=== PATIENT | female | born 1990 | race Caucasian/White ===

== ENCOUNTER 2020-11-13 21:00 | Inpatient (IN) ==
[2020-11-13] MEDS ORDERED: 0.9 % Sodium Chloride 1,000 ML IVC ONE (21:30)
[2020-11-13 22:41] LABS: Basophils % 0.4 %; Eosinophils % 0.4 %; Hematocrit 42.2 % (35.3-44.9); Hemoglobin 13.9 g/dL (11.5-15.4); Immature Granulocytes % 0.4 % (0-4); Lymphocytes % 37.7 %; Mean Corpuscular HGB Conc 32.9 g/dL (31.6-35.5); Mean Corpuscular Hemoglobin 27.5 pg (28.0-33.3); Mean Corpuscular Volume 83.6 fL (83.0-100.0); Mean Platelet Volume 8.9 fL (9.4-12.4); Monocytes # 0.3 K/mcL (0.0-1.3); Monocytes % 5.7 %; Platelet Count 280 K/mcL (140-400); Red Blood Count 5.05 M/mcL (3.82-4.97); Red Cell Distribution Width 13.1 % (11.5-14.5); Segmented Neutrophils % 55.4 %; White Blood Count 5.4 K/mcL (4.3-11.1)
[2020-11-13 22:50] LABS: VBG HCO3 32 mEq/L (21-27); VBG PCO2 50 mmHg (41-51); VBG PH 7.41 pH Units (7.32-7.42); VBG PO2 87 mmHg (25-50)
[2020-11-13 23:00] LABS: BUN/Creatinine Ratio 11 (6-26); Blood Urea Nitrogen 7 mg/dL (6-20); Calcium 8.9 mg/dL (8.6-10.3); Carbon Dioxide 26 mEq/L (23-29); Chloride 102 mEq/L (98-107); Glucose 88 mg/dL (70-105); Osmolality,Calculated 289 (280-300); Potassium 3.4 mEq/L (3.5-5.1); Sodium 141 mEq/L (136-145); eGFR For African Americans > 60 (> 60); eGFR For Non-African Americans > 60 (> 60)
[2020-11-13 23:16] LABS: Troponin I 0.05 ng/mL (< 0.04)
[2020-11-13 23:17] LABS: Bacteria,Urine Few per hpf (None-Few); Bilirubin,Urine Negative (Negative); Blood,Urine Negative (Negative); Clarity,Urine Turbid (Clear); Color,Urine Yellow (Yellow); Glucose,Urine (UA) Normal (Normal); Ketones,Urine Trace mg/dL (Negative); Leukocyte Esterase,Urine Small (Negative); Mucus,Urine Few per lpf (None-Few); Nitrite,Urine Negative (Negative); PH,Urine 6.5 pH Units (5.0-8.0); Protein,Urine 100 mg/dL (Neg-Trace); Specific Gravity,Urine > 1.030 (1.010-1.025); Squamous Epithelial Cell,Urine Moderate per hpf (None-Few)
[2020-11-13] MEDS ORDERED: Aspirin Enteric Coated 81 MG Tablet PO ONE (23:30)
[2020-11-13] MEDS ORDERED: Benzonatate 100 MG CAPSULE PO PRN (23:59)
[2020-11-14] MEDS ORDERED: Ipratropium 1 PUFF INHALER IH PRN (00:01)
[2020-11-14] MEDS ORDERED: Melatonin 3 MG TABLET PO PRN (00:02)
[2020-11-14] MEDS ORDERED: Ondansetron 4 MG/2 ML VIAL IVP PRN (00:02)
[2020-11-14] MEDS ORDERED: Naloxone 0.4 MG/ML INJ IVP PRN (00:02)
[2020-11-14] MEDS ORDERED: Acetaminophen 325 MG TABLET PO PRN (00:02)
[2020-11-14] MEDS ORDERED: Furosemide 20 MG/2 ML VIAL IVP ONE (00:51)
[2020-11-14 01:01] LABS: Alanine Aminotransferase 97 Units/L (7-52); Albumin/Globulin Ratio 1.1 (1.1-2.2); Alkaline Phosphatase 94 Units/L (34-104); Aspartate Amino Transferase 109 Units/L (13-39); Bilirubin,Indirect 0.4 mg/dL (0.0-1.0); Bilirubin,Total 0.4 mg/dL (0.3-1.0); C-Reactive Protein 102 mg/L (Less than 10); Globulin 3.5 g/dL (2.4-3.5); Total Protein 7.5 g/dL (6.4-8.9)
[2020-11-14 04:00] LABS: Basophils % 0.4 %; Hematocrit 42.4 % (35.3-44.9); Hemoglobin 13.9 g/dL (11.5-15.4); Immature Granulocytes % 0.6 % (0-4); Lymphocytes # 0.8 K/mcL (0.6-4.6); Lymphocytes % 17.3 %; Mean Corpuscular HGB Conc 32.8 g/dL (31.6-35.5); Mean Corpuscular Hemoglobin 27.5 pg (28.0-33.3); Mean Platelet Volume 8.9 fL (9.4-12.4); Monocytes # 0.1 K/mcL (0.0-1.3); Monocytes % 1.3 %; Neutrophils # 3.9 K/mcL (1.6-8.9); Platelet Count 313 K/mcL (140-400); Red Blood Count 5.05 M/mcL (3.82-4.97); Segmented Neutrophils % 80.4 %; White Blood Count 4.8 K/mcL (4.3-11.1)
[2020-11-14] MEDS ORDERED: Remdesivir 200 MG in 0.9 % Sodium Chloride 100 ML IVPB ONE (04:00)
[2020-11-14 04:20] LABS: Alanine Aminotransferase 103 Units/L (7-52); Albumin 4.1 g/dL (3.5-5.7); Albumin/Globulin Ratio 1.2 (1.1-2.2); Alkaline Phosphatase 102 Units/L (34-104); Aspartate Amino Transferase 108 Units/L (13-39); BUN/Creatinine Ratio 12 (6-26); Bilirubin,Indirect 0.4 mg/dL (0.0-1.0); Bilirubin,Total 0.4 mg/dL (0.3-1.0); Blood Urea Nitrogen 7 mg/dL (6-20); Calcium 8.7 mg/dL (8.6-10.3); Carbon Dioxide 28 mEq/L (23-29); Chloride 102 mEq/L (98-107); Globulin 3.5 g/dL (2.4-3.5); Glucose 144 mg/dL (70-105); Osmolality,Calculated 293 (280-300); Potassium 3.6 mEq/L (3.5-5.1); Sodium 141 mEq/L (136-145); Total Protein 7.6 g/dL (6.4-8.9); Troponin I 0.08 ng/mL (< 0.04); eGFR For African Americans > 60 (> 60); eGFR For Non-African Americans > 60 (> 60)
[2020-11-14 04:36] LABS: Platelet Estimate Normal (Normal); Reactive Lymphocytes Present (Not Present)
[2020-11-14] MEDS ORDERED: *HR* Enoxaparin 40 MG/0.4 ML SYRINGE SQ SCH (06:00)
[2020-11-14] MEDS ORDERED: Isovue-370 500 ML BOTTLE IVP ONE (07:23)
[2020-11-14] MEDS ORDERED: Perflutren Lipid Microsphere 1.3 ML in 0.9 % Sodium Chloride 8.7 ML IVP PRN (07:25)
[2020-11-14] MEDS: Aspirin 81 MG TAB.CHEW PO SCH (09:53)
[2020-11-14] MEDS: cefTRIAXone 1,000 MG in Water for inj. (sterile) 10 ML IVP SCH (09:53)
[2020-11-14] MEDS: Furosemide 40 MG/4 ML VIAL IVP SCH (09:53)
[2020-11-14] MEDS: Azithromycin 500 MG in D5% in Water 250 ML IVPB SCH (09:54)
[2020-11-14] MEDS ORDERED: *HR* Heparin 5,000 UNIT/ML VIAL IVP PRN ×2 (10:01)
[2020-11-14] MEDS ORDERED: *HR* Heparin 5,000 UNIT/ML VIAL IVP ONE (10:01)
[2020-11-14 10:58] LABS: Heparin anti-factor XA UFH 0.15 IU/mL (0.30-0.70)
[2020-11-14 10:59] LABS: INR 1.2; Prothrombin Time 13.3 Seconds (9.4-12.1)
[2020-11-14] MEDS: Heparin 25,000UNIT/250ML 1/2NS 25,000 UNIT/250 ML IV.SOLN IVC SCH (11:15)
[2020-11-14 11:37] LABS: Hematocrit 44.4 % (35.3-44.9); Hemoglobin 14.6 g/dL (11.5-15.4); Mean Corpuscular HGB Conc 32.9 g/dL (31.6-35.5); Mean Corpuscular Hemoglobin 27.6 pg (28.0-33.3); Mean Corpuscular Volume 83.9 fL (83.0-100.0); Platelet Count 373 K/mcL (140-400); Red Blood Count 5.29 M/mcL (3.82-4.97); Red Cell Distribution Width 13.1 % (11.5-14.5); White Blood Count 2.9 K/mcL (4.3-11.1)
[2020-11-15 03:12] LABS: Basophils % 0.4 %; Hematocrit 40.5 % (35.3-44.9); Hemoglobin 13.5 g/dL (11.5-15.4); Immature Granulocytes % 0.9 % (0-4); Lymphocytes # 1.6 K/mcL (0.6-4.6); Lymphocytes % 29.7 %; Mean Corpuscular HGB Conc 33.3 g/dL (31.6-35.5); Mean Corpuscular Hemoglobin 28.1 pg (28.0-33.3); Mean Corpuscular Volume 84.2 fL (83.0-100.0); Mean Platelet Volume 9.1 fL (9.4-12.4); Monocytes % 9.9 %; Neutrophils # 3.3 K/mcL (1.6-8.9); Nucleated Red Blood Cells 0.4 /100 WBC (0); Platelet Count 402 K/mcL (140-400); Red Blood Count 4.81 M/mcL (3.82-4.97); Red Cell Distribution Width 12.9 % (11.5-14.5); Segmented Neutrophils % 59.1 %
[2020-11-15 03:22] LABS: Monocytes # 0.5 K/mcL (0.0-1.3); White Blood Count 5.5 K/mcL (4.3-11.1)
[2020-11-15 03:32] LABS: Albumin 3.9 g/dL (3.5-5.7); Albumin/Globulin Ratio 1.3 (1.1-2.2); Bilirubin,Direct 0.1 mg/dL (0.0-0.2); Bilirubin,Indirect 0.2 mg/dL (0.0-1.0); Bilirubin,Total 0.3 mg/dL (0.3-1.0); Chol/HDL Ratio 8.6 (0-4.9); Globulin 2.9 g/dL (2.4-3.5); Total Protein 6.8 g/dL (6.4-8.9)
[2020-11-15 03:35] LABS: Alanine Aminotransferase 73 Units/L (7-52); Albumin 3.8 g/dL (3.5-5.7); Albumin/Globulin Ratio 1.2 (1.1-2.2); Alkaline Phosphatase 87 Units/L (34-104); Aspartate Amino Transferase 38 Units/L (13-39); BUN/Creatinine Ratio 24 (6-26); Bilirubin,Total 0.3 mg/dL (0.3-1.0); Blood Urea Nitrogen 13 mg/dL (6-20); Calcium 8.8 mg/dL (8.6-10.3); Carbon Dioxide 26 mEq/L (23-29); Chloride 103 mEq/L (98-107); Globulin 3.2 g/dL (2.4-3.5); Glucose 136 mg/dL (70-105); Osmolality,Calculated 296 (280-300); Potassium 3.8 mEq/L (3.5-5.1); Sodium 142 mEq/L (136-145); eGFR For African Americans > 60 (> 60); eGFR For Non-African Americans > 60 (> 60)
[2020-11-15] MEDS: Heparin 25,000UNIT/250ML 1/2NS 25,000 UNIT/250 ML IV.SOLN IVC SCH ×2 (05:02→23:49)
[2020-11-15] MEDS: Remdesivir 100 MG in 0.9 % Sodium Chloride 100 ML IVPB SCH (05:04)
[2020-11-15] MEDS: Ipratropium 1 PUFF INHALER IH SCH ×3 (08:16→21:59)
[2020-11-15] MEDS: cefTRIAXone 1,000 MG in Water for inj. (sterile) 10 ML IVP SCH (09:35)
[2020-11-15] MEDS: Furosemide 40 MG/4 ML VIAL IVP SCH (09:36)
[2020-11-15] MEDS: Loratadine 10 MG TABLET PO SCH (09:37)
[2020-11-15] MEDS: Aspirin 81 MG TAB.CHEW PO SCH (09:37)
[2020-11-15] MEDS: Azithromycin 500 MG in D5% in Water 250 ML IVPB SCH (09:37)
[2020-11-16] MEDS: Remdesivir 100 MG in 0.9 % Sodium Chloride 100 ML IVPB SCH (03:12)
[2020-11-16] MEDS: Ipratropium 1 PUFF INHALER IH SCH ×4 (04:28→21:33)
[2020-11-16 05:02] LABS: Basophils % 0.5 %; Hemoglobin 12.8 g/dL (11.5-15.4); Immature Granulocytes % 1.5 % (0-4); Lymphocytes % 23.5 %; Mean Corpuscular HGB Conc 32.8 g/dL (31.6-35.5); Mean Corpuscular Hemoglobin 27.8 pg (28.0-33.3); Mean Corpuscular Volume 84.8 fL (83.0-100.0); Mean Platelet Volume 9.1 fL (9.4-12.4); Monocytes # 0.6 K/mcL (0.0-1.3); Monocytes % 6.4 %; Platelet Count 437 K/mcL (140-400); Segmented Neutrophils % 68.1 %
[2020-11-16 05:20] LABS: Alanine Aminotransferase 69 Units/L (7-52); Albumin 3.8 g/dL (3.5-5.7); Albumin/Globulin Ratio 1.4 (1.1-2.2); Alkaline Phosphatase 77 Units/L (34-104); Aspartate Amino Transferase 29 Units/L (13-39); BUN/Creatinine Ratio 30 (6-26); Bilirubin,Direct 0.1 mg/dL (0.0-0.2); Bilirubin,Indirect 0.3 mg/dL (0.0-1.0); Bilirubin,Total 0.4 mg/dL (0.3-1.0); Blood Urea Nitrogen 18 mg/dL (6-20); Carbon Dioxide 30 mEq/L (23-29); Chloride 103 mEq/L (98-107); Globulin 2.8 g/dL (2.4-3.5); Glucose 151 mg/dL (70-105); Magnesium 2.1 mg/dL (1.6-2.6); Osmolality,Calculated 301 (280-300); Potassium 3.6 mEq/L (3.5-5.1); Sodium 143 mEq/L (136-145); Total Protein 6.6 g/dL (6.4-8.9); eGFR For African Americans > 60 (> 60); eGFR For Non-African Americans > 60 (> 60)
[2020-11-16 05:24] LABS: Neutrophils # 5.9 K/mcL (1.6-8.9); White Blood Count 8.7 K/mcL (4.3-11.1)
[2020-11-16] MEDS: Aspirin 81 MG TAB.CHEW PO SCH (08:38)
[2020-11-16] MEDS: Loratadine 10 MG TABLET PO SCH (08:39)
[2020-11-16] MEDS: cefTRIAXone 1,000 MG in Water for inj. (sterile) 10 ML IVP SCH (08:39)
[2020-11-16] MEDS: Furosemide 40 MG/4 ML VIAL IVP SCH (08:40)
[2020-11-16] MEDS: Azithromycin 500 MG in D5% in Water 250 ML IVPB SCH (08:40)
[2020-11-16] MEDS: *HR* Enoxaparin 40 MG/0.4 ML SYRINGE SQ SCH (18:31)
[2020-11-17] MEDS: Remdesivir 100 MG in 0.9 % Sodium Chloride 100 ML IVPB SCH (03:38)
[2020-11-17] MEDS: Ipratropium 1 PUFF INHALER IH SCH ×2 (03:58→08:51)
[2020-11-17 04:08] LABS: Alanine Aminotransferase 75 Units/L (7-52); Albumin 3.8 g/dL (3.5-5.7); Albumin/Globulin Ratio 1.4 (1.1-2.2); Alkaline Phosphatase 74 Units/L (34-104); Aspartate Amino Transferase 26 Units/L (13-39); BUN/Creatinine Ratio 35 (6-26); Bilirubin,Direct 0.1 mg/dL (0.0-0.2); Bilirubin,Indirect 0.2 mg/dL (0.0-1.0); Bilirubin,Total 0.3 mg/dL (0.3-1.0); Blood Urea Nitrogen 20 mg/dL (6-20); Calcium 8.9 mg/dL (8.6-10.3); Carbon Dioxide 31 mEq/L (23-29); Chloride 102 mEq/L (98-107); Globulin 2.7 g/dL (2.4-3.5); Glucose 156 mg/dL (70-105); Magnesium 2.3 mg/dL (1.6-2.6); Osmolality,Calculated 300 (280-300); Potassium 3.8 mEq/L (3.5-5.1); Sodium 142 mEq/L (136-145); Total Protein 6.5 g/dL (6.4-8.9); eGFR For African Americans > 60 (> 60); eGFR For Non-African Americans > 60 (> 60)
[2020-11-17] MEDS: *HR* Enoxaparin 40 MG/0.4 ML SYRINGE SQ SCH (04:59)
[2020-11-17] MEDS: Aspirin 81 MG TAB.CHEW PO SCH (08:47)
[2020-11-17] MEDS: Loratadine 10 MG TABLET PO SCH (08:48)
[2020-11-17] MEDS: cefTRIAXone 1,000 MG in Water for inj. (sterile) 10 ML IVP SCH (08:49)
[2020-11-17] MEDS: Furosemide 40 MG/4 ML VIAL IVP SCH (08:49)
[2020-11-17 08:53] VITALS: O2SAT 94
[2020-11-17] MEDS ORDERED: Azithromycin 250 MG TABLET PO SCH (09:00)
[2020-11-17] MEDS: Azithromycin 500 MG in D5% in Water 250 ML IVPB SCH (09:01)
[2020-11-17 10:51] VITALS: BP 120/73; PULSE 69; TEMP 97.6
== END 2020-11-17 14:35 | disposition home or self-care (01) | DRG 871 ==
LOC: EMEROOARM 21:00 → 2ANU 21:00 → SUATTDRO 11-14 12:21
PROVIDERS: ADMIT Family Medicine; ATTEND Internal Medicine